=== PATIENT | female | born 1980 | race Caucasian/White ===

== ENCOUNTER 2016-11-04 16:20 | Emergency (ER) | payer SELFPAY ==
--- NOTE | 2016-11-04 17:55 | ED CLINICAL REPORT ---
Clinical Report - Physicians/Mid Levels [facility] [address] [place] [address] 11/04/2016 16:22 Patient: MICHELLE MEDINA Time Seen: 16:21; initial patient contact. Arrived- By ambulance. Historian- patient. HISTORY OF PRESENT ILLNESS Chief Complaint: COUGH and SINUS PAIN. This started about days ago and is still present. It was gradual in onset. The illness is described as mild. The patient has had a cough, a sore throat, nasal congestion, sinus pressure and sinus drainage. She has had chills and a nasal discharge. No sputum production, difficulty breathing, chest discomfort or pain or fever. No muscle aches or ear pain. Additional history - No known contact with a sick individual. Similar symptoms previously: None. Recent medical care: The patient was seen recently in a clinic. ( sent here for "concerns for a PE".). REVIEW OF SYSTEMS The patient has had a headache. No nausea, vomiting, diarrhea, pedal edema or calf pain. All systems otherwise negative, except as recorded above. PAST HISTORY Negative. Problems: no known problems. Surgeries: Tubal ligation. Medications: None. Allergies: No Known Drug Allergy. SOCIAL HISTORY Never smoker. Occasional alcohol use. History of drug use: marijuana. Second-hand smoke exposure. ADDITIONAL NOTES The nursing notes have been reviewed with agreement regarding the chief complaint, PMH and patient medications and allergies. PHYSICAL EXAM Appearance: Alert. No acute distress. Eyes: Eyes normal inspection. ENT: Tenderness present to percussion/palpation of the sinuses. Ears normal. Mild generalized pharyngeal erythema. The mucous membranes are not dry. Neck: No lymphadenopathy. CVS: Normal heart rate and rhythm. Heart sounds normal. Respiratory: No respiratory distress. Breath sounds normal. Skin: No rash. Neuro: Oriented X 3. PROGRESS AND PROCEDURES Disposition: Discharged home in good and improved condition. Condition: good. CLINICAL IMPRESSION Acute maxillary sinusitis Costochondritis. An EKG was not performed because a benign, noncardiac etiology was evident without doing an EKG. INSTRUCTIONS Prescription Medications: Azithromycin 500 mg tablets: take 1 orally every day for 3 days. Total course 3 days. No refills. Diclofenac 50 mg tablets: take 1 tablet orally every 8 hours as needed for pain or stiffness. Dispense twenty (20). No refill. Follow-up: Follow up with your doctor in about two days. Call for an appointment. Screening today revealed the patient's blood pressure to be in the normal range. (Electronically signed by Juan Cooper Dr. 11/04/2016 22:52)
--- NOTE | 2016-11-04 17:55 | ED ORDER SUMMARY ---
..... Patient: MICHELLE MEDINA OrderSheet [facility] VisitID: [id number] [address] [place] [address] 35y, F Registration Date/Time: 11/04/2016 ORDER SHEET Weight: 124.7 kg (stated) Allergies: No Known Drug Allergy GENERAL ORDERS: MEDICATION ORDERS: Toradol IM 60 mg (NOW) (16:43 11/04/2016 Mahendra Marlow) (Ack 16:53 MWinterer R.N.) (17:03 MWinterer R.N.) IV FLUIDS: ORDER SHEET NOTES: [Electronically signed by Kerri Carcamo R.N. (19:08 11/04/2016)] [Electronically signed by Juan Cooper Dr. (22:52 11/04/2016)] [Electronically locked/signed by Kerri Carcamo R.N. (19:08 11/04/2016)]
--- NOTE | 2016-11-04 17:55 | ED NURSING NOTES ---
Clinical Report - Nurses [facility] [address] [place] [address] 11/04/2016 16:22 Patient: MICHELLE MEDINA TRIAGE Acuity: LEVEL 3. Chief Complaint: COUGH and SORE THROAT. Alert. No acute distress. SEPSIS SCREEN: Sepsis Screen. Negative (no infection suspected/documented). --16:24 Kerri Carcamo R.N. 16:20 11/04/16. BP: 118/70. HR: 106. RR: 20. O2 saturation: 96%. Temp: 98.9 F (oral). --16:24 Kerri Carcamo R.N. Weight: 124.7 kg stated. Height/Length: 65 inches Per Patient. BMI: 45.8. --16:23 Kerri Carcamo R.N. Medications None. --16:22 Kerri Carcamo R.N. Medication/allergy information source: the patient. --16:24 Kerri Carcamo R.N. Allergies No Known Drug Allergy. --16:22 Kerri Carcamo R.N. History Arrived by EMS. Historian: patient. Accompanied by spouse. Primary physician (NONE). Onset. (4 days ago). 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 Recently seen at another facility in a clinic. PAST MEDICAL HX: Last normal menstrual period was 4 weeks ago. Has had a tubal ligation. SOCIAL HX: Never smoker. Occasional alcohol use. History of occasional drug use: marijuana. FALL RISK ASSESSMENT: Fall risk assessment completed. No fall risk identified. NUTRITIONAL RISK ASSESSMENT: The nutritional risk assessment revealed no deficiencies. FUNCTIONAL ASSESSMENT: Functional assessment: no impairments noted. LEARNING NEEDS ASSESSMENT: The learning needs assessment revealed no barriers. SKIN INTEGRITY ASSESSMENT: Skin integrity risk assessment completed. No skin integrity risk identified. --16:24 Kerri Carcamo R.N. Assessment GENERAL / NEURO / PSYCH: Alert. Oriented X 4. Appears in no acute distress. Patient appears calm and cooperative. RESPIRATORY: Respirations not labored. CVS: Capillary refill less than 2 seconds. GI / : Abdomen soft and nontender. SKIN: Mucous membranes are pink. Skin is warm and dry. --16:24 Kerri Carcamo R.N. Interventions ID band on patient. To treatment room. --16:24 Kerri Carcamo R.N. PHYSICAL ASSESSMENT To room via stretcher. GENERAL / NEURO / PSYCH: Alert. Oriented X 4. Appears in no acute distress. HEENT: Pupils equal, round and reactive to light. Ears within normal limits. Voice within normal limits. Mucous membranes are pink. RESPIRATORY: Respirations not labored. CVS: Capillary refill less than 2 seconds. SKIN: Skin is warm and dry. Normal skin turgor. --16:24 Kerri Carcamo R.N. NURSING PROGRESS NOTES 16:25 11/04/16. Patient gowned. Two patient identifiers checked. Call light placed in reach. Side rails up x 1. Bed placed in lowest position. Brakes of bed on. Patient ready for evaluation- chart flagged. --16:25 Kerri Carcamo R.N. 17:03 11/04/2016 Toradol (Ketorolac Tromethamine) IM 60 mg given. Given in the left anterior lateral thigh. Allergies verified and confirmed 5 rights. --17:03 Kerri Carcamo R.N. DISPOSITION / DISCHARGE Departure time: 18:10 Nov 04 2016. Condition at departure: improved and stable. No learning barriers present. Discharge instructions provided and reviewed with the patient. Reviewed medication(s) side effects, precautions and dosing information. Prescription(s) given to the patient. Patient verbalized understanding. Written instructions provided in [place]i. The patient was discharged by the physician. She was discharged home and accompanied by spouse. She left the Emergency Department ambulatory and via bus and with fare provided. --19:08 Kerri Carcamo R.N. 19:06 11/04/16. BP: 112/69. HR: 98. RR: 18. O2 saturation: 98% on room air. Temp: 98.8 F (oral). Pain level now: 0/10. --19:08 Kerri Carcamo R.N. Locked/Released at 11/04/2016 19:08 by Kerri Carcamo R.N.
--- NOTE | 2016-11-04 17:55 | ED NURSING NOTES ---
Clinical Report - Nurses [facility] [address] [place] [address] 11/04/2016 16:22 Patient: MICHELLE MEDINA TRIAGE Acuity: LEVEL 3. Chief Complaint: COUGH and SORE THROAT. Alert. No acute distress. SEPSIS SCREEN: Sepsis Screen. Negative (no infection suspected/documented). --16:24 Kerri Carcamo R.N. 16:20 11/04/16. BP: 118/70. HR: 106. RR: 20. O2 saturation: 96%. Temp: 98.9 F (oral). --16:24 Kerri Carcamo R.N. Weight: 124.7 kg stated. Height/Length: 65 inches Per Patient. BMI: 45.8. --16:23 Kerri Carcamo R.N. Medications None. --16:22 Kerri Carcamo R.N. Medication/allergy information source: the patient. --16:24 Kerri Carcamo R.N. Allergies No Known Drug Allergy. --16:22 Kerri Carcamo R.N. History Arrived by EMS. Historian: patient. Accompanied by spouse. Primary physician (NONE). Onset. (4 days ago). 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 Recently seen at another facility in a clinic. PAST MEDICAL HX: Last normal menstrual period was 4 weeks ago. Has had a tubal ligation. SOCIAL HX: Never smoker. Occasional alcohol use. History of occasional drug use: marijuana. FALL RISK ASSESSMENT: Fall risk assessment completed. No fall risk identified. NUTRITIONAL RISK ASSESSMENT: The nutritional risk assessment revealed no deficiencies. FUNCTIONAL ASSESSMENT: Functional assessment: no impairments noted. LEARNING NEEDS ASSESSMENT: The learning needs assessment revealed no barriers. SKIN INTEGRITY ASSESSMENT: Skin integrity risk assessment completed. No skin integrity risk identified. --16:24 Kerri Carcamo R.N. Assessment GENERAL / NEURO / PSYCH: Alert. Oriented X 4. Appears in no acute distress. Patient appears calm and cooperative. RESPIRATORY: Respirations not labored. CVS: Capillary refill less than 2 seconds. GI / : Abdomen soft and nontender. SKIN: Mucous membranes are pink. Skin is warm and dry. --16:24 Kerri Carcamo R.N. Interventions ID band on patient. To treatment room. --16:24 Kerri Carcamo R.N. PHYSICAL ASSESSMENT To room via stretcher. GENERAL / NEURO / PSYCH: Alert. Oriented X 4. Appears in no acute distress. HEENT: Pupils equal, round and reactive to light. Ears within normal limits. Voice within normal limits. Mucous membranes are pink. RESPIRATORY: Respirations not labored. CVS: Capillary refill less than 2 seconds. SKIN: Skin is warm and dry. Normal skin turgor. --16:24 Kerri Carcamo R.N. NURSING PROGRESS NOTES 16:25 11/04/16. Patient gowned. Two patient identifiers checked. Call light placed in reach. Side rails up x 1. Bed placed in lowest position. Brakes of bed on. Patient ready for evaluation- chart flagged. --16:25 Kerri Carcamo R.N. 17:03 11/04/2016 Toradol (Ketorolac Tromethamine) IM 60 mg given. Given in the left anterior lateral thigh. Allergies verified and confirmed 5 rights. --17:03 Kerri Carcamo R.N. DISPOSITION / DISCHARGE Departure time: 18:10 Nov 04 2016. Condition at departure: improved and stable. No learning barriers present. Discharge instructions provided and reviewed with the patient. Reviewed medication(s) side effects, precautions and dosing information. Prescription(s) given to the patient. Patient verbalized understanding. Written instructions provided in Kyrgyz. The patient was discharged by the physician. She was discharged home and accompanied by spouse. She left the Emergency Department ambulatory and via bus and with fare provided. --19:08 Kerri Carcamo R.N. 19:06 11/04/16. BP: 112/69. HR: 98. RR: 18. O2 saturation: 98% on room air. Temp: 98.8 F (oral). Pain level now: 0/10. --19:08 Kerri Carcamo R.N. Locked/Released at 11/04/2016 19:08 by Kerri Carcamo R.N.
--- NOTE | 2016-11-04 17:55 | ED ORDER SUMMARY ---
..... Patient: MICHELLE MEDINA OrderSheet [facility] VisitID: [id number] [address] [place] [address] 35y, F Registration Date/Time: 11/04/2016 ORDER SHEET Weight: 124.7 kg (stated) Allergies: No Known Drug Allergy GENERAL ORDERS: MEDICATION ORDERS: Toradol IM 60 mg (NOW) (16:43 11/04/2016 Mahendra Marlow) (Ack 16:53 MWinterer R.N.) (17:03 MWinterer R.N.) IV FLUIDS: ORDER SHEET NOTES: [Electronically signed by Kerri Carcamo R.N. (19:08 11/04/2016)] [Electronically signed by Juan Cooper Dr. (22:52 11/04/2016)] [Electronically locked/signed by Kerri Carcamo R.N. (19:08 11/04/2016)]
--- NOTE | 2016-11-04 17:55 | ED CLINICAL REPORT ---
Clinical Report - Physicians/Mid Levels [facility] [address] [place] [address] 11/04/2016 16:22 Patient: MICHELLE MEDINA Time Seen: 16:21; initial patient contact. Arrived- By ambulance. Historian- patient. HISTORY OF PRESENT ILLNESS Chief Complaint: COUGH and SINUS PAIN. This started about days ago and is still present. It was gradual in onset. The illness is described as mild. The patient has had a cough, a sore throat, nasal congestion, sinus pressure and sinus drainage. She has had chills and a nasal discharge. No sputum production, difficulty breathing, chest discomfort or pain or fever. No muscle aches or ear pain. Additional history - No known contact with a sick individual. Similar symptoms previously: None. Recent medical care: The patient was seen recently in a clinic. ( sent here for "concerns for a PE".). REVIEW OF SYSTEMS The patient has had a headache. No nausea, vomiting, diarrhea, pedal edema or calf pain. All systems otherwise negative, except as recorded above. PAST HISTORY Negative. Problems: no known problems. Surgeries: Tubal ligation. Medications: None. Allergies: No Known Drug Allergy. SOCIAL HISTORY Never smoker. Occasional alcohol use. History of drug use: marijuana. Second-hand smoke exposure. ADDITIONAL NOTES The nursing notes have been reviewed with agreement regarding the chief complaint, PMH and patient medications and allergies. PHYSICAL EXAM Appearance: Alert. No acute distress. Eyes: Eyes normal inspection. ENT: Tenderness present to percussion/palpation of the sinuses. Ears normal. Mild generalized pharyngeal erythema. The mucous membranes are not dry. Neck: No lymphadenopathy. CVS: Normal heart rate and rhythm. Heart sounds normal. Respiratory: No respiratory distress. Breath sounds normal. Skin: No rash. Neuro: Oriented X 3. PROGRESS AND PROCEDURES Disposition: Discharged home in good and improved condition. Condition: good. CLINICAL IMPRESSION Acute maxillary sinusitis Costochondritis. An EKG was not performed because a benign, noncardiac etiology was evident without doing an EKG. INSTRUCTIONS Prescription Medications: Azithromycin 500 mg tablets: take 1 orally every day for 3 days. Total course 3 days. No refills. Diclofenac 50 mg tablets: take 1 tablet orally every 8 hours as needed for pain or stiffness. Dispense twenty (20). No refill. Follow-up: Follow up with your doctor in about two days. Call for an appointment. Screening today revealed the patient's blood pressure to be in the normal range. (Electronically signed by Juan Cooper Dr. 11/04/2016 22:52)
--- NOTE | 2016-11-04 22:52 | ED MED RECONCILIATION SUMMARY ---
Patient: MICHELLE MEDINA Medication Reconciliation Report [facility] VisitID: [id number] [address] [place] [address] 35y, F Registration Date/Time: 11/04/2016 Weight: 124.7 kg Height/Length: 65 in. BMI: 45.8 ALLERGIES: No Known Drug Allergy The patient's Home Medications are listed below: NONE. The source(s) of the original Home Medication information: patient The following Medications were given to the patient in the Emergency Department: Toradol [IM] IM 60 mg, administered: 11/04/2016 5:03:00 PM The following Medications were prescribed to the patient: Azithromycin 500 mg tablets: take 1 orally every day for 3 days. Total course 3 days. No refills. -- Juan Cooper Dr. Diclofenac 50 mg tablets: take 1 tablet orally every 8 hours as needed for pain or stiffness. Dispense twenty (20). No refill. -- Juan Cooper Dr.
--- NOTE | 2016-11-04 22:52 | ED MED RECONCILIATION SUMMARY ---
Patient: MICHELLE MEDINA Medication Reconciliation Report [facility] VisitID: [id number] [address] [place] [address] 35y, F Registration Date/Time: 11/04/2016 Weight: 124.7 kg Height/Length: 65 in. BMI: 45.8 ALLERGIES: No Known Drug Allergy The patient's Home Medications are listed below: NONE. The source(s) of the original Home Medication information: patient The following Medications were given to the patient in the Emergency Department: Toradol [IM] IM 60 mg, administered: 11/04/2016 5:03:00 PM The following Medications were prescribed to the patient: Azithromycin 500 mg tablets: take 1 orally every day for 3 days. Total course 3 days. No refills. -- Juan Cooper Dr. Diclofenac 50 mg tablets: take 1 tablet orally every 8 hours as needed for pain or stiffness. Dispense twenty (20). No refill. -- Juan Cooper Dr.
--- NOTE | 2016-11-04 22:52 | ED MAR SUMMARY ---
..... Medication Administration Record [facility] [address] [place] [address] Patient: MICHELLE MEDINA Visit ID: [id number] 35y, F Weight: 124.7 kg Height/Length: 65 in BMI: 45.8 ALLERGIES: No Known Drug Allergy Given 17:03 11/04/2016 Kerri Carcamo R.N. Medication Administered: TORADOL [IM] (KETOROLAC TROMETHAMINE), Dose: 60 mg IM. Medication Ordered: Toradol IM 60 mg (NOW).
--- NOTE | 2016-11-04 22:52 | ED MAR SUMMARY ---
..... Medication Administration Record Located Within [facility] [address] [place] [address] Patient: MICHELLE MEDINA Visit ID: [id number] 35y, F Weight: 124.7 kg Height/Length: 65 in BMI: 45.8 ALLERGIES: No Known Drug Allergy Given 17:03 11/04/2016 Kerri Carcamo R.N. Medication Administered: TORADOL [IM] (KETOROLAC TROMETHAMINE), Dose: 60 mg IM. Medication Ordered: Toradol IM 60 mg (NOW).
--- NOTE | 2016-11-04 22:52 | ED DISCHARGE INSTRUCTIONS ---
Patient: MICHELLE MEDINA General Instructions [facility] VisitID: [id number] [place] [address] 35y, F Registration Date/Time: 11/04/2016 Acute maxillary sinusitis Costochondritis. An EKG was not performed because a benign, noncardiac etiology was evident without doing an EKG. INSTRUCTIONS Prescription Medications: Azithromycin 500 mg tablets: take 1 orally every day for 3 days. Total course 3 days. No refills. Diclofenac 50 mg tablets: take 1 tablet orally every 8 hours as needed for pain or stiffness. Dispense twenty (20). No refill. Follow-up: Follow up with your doctor in about two days. Call for an appointment. Screening today revealed the patient's blood pressure to be in the normal range. ADDITIONAL INFORMATION Sinusitis [Abx Tx] The sinuses are air-filled spaces within the bones of the face. They connect to the inside of the nose. Sinusitis is an inflammation of the tissue lining the sinus cavity. Sinus inflammation can occur during a cold or hay-fever (allergies to pollens and other particles in the air) and cause symptoms of sinus congestion and fullness. A sinus infection causes fever, headache and facial pain. There is usually green or yellow drainage from the nose or into the back of the throat (post-nasal drip). Antibiotics are prescribed to treat this condition. Home Care: Drink plenty of water, hot tea, and other liquids to stay well hydrated. This thins the mucus and promotes sinus drainage. Apply heat to the painful areas of the face. Use a towel soaked in hot water. Or, instrument repairer steam plant the shower and direct the hot spray onto your face. This is a good way to inhale warm water vapor and get heat on your face at the same time. (Cover your mouth and nose with your hands so you can still breathe as you do this.) Use a vaporizer with products such as Vicks VapoRub (contains menthol) at night. Suck on peppermint, menthol or eucalyptus hard candies during the day. An expectorant containing guaifenesin (such as Robitussin), helps to thin the mucus and promote drainage from the sinuses. [id number] decongestants may be used unless a similar medicine was prescribed. Nasal sprays work the fastest. Use one that contains phenylephrine (Jose G-synephrine, Sinex and others) or oxymetazoline (Afrin). First blow the nose gently to remove mucus, then apply the drops. Do not use these medicines more often than directed on the label or for more than three days or symptoms may worsen. You may also use tablets containing pseudoephedrine (Sudafed). Many sinus remedies combine ingredients, which may increase side effects. Read the labels or ask the pharmacist for help. NOTE: Persons with high blood pressure should not use decongestants. They can raise blood pressure. Antihistamines are useful if allergies are a cause of your sinusitis. The mildest one is chlorpheniramine (available without a prescription). The dose for adults is 8-12mg three times a day. [NOTE: Do not use chlorpheniramine if you have glaucoma or if you are a man with trouble urinating due to an enlarged prostate.] Claritin (loratidine) is an antihistamine that causes less drowsiness and is a good alternative for daytime use. Do not use nasal rinses or irrigation during an acute sinus infection, unless advised by your doctor. Rinsing may spread the infection to other sinuses. You may use acetaminophen (Tylenol) or ibuprofen (Motrin, Advil) to control pain, unless another pain medicine was prescribed. [ NOTE: If you have chronic liver or kidney disease or ever had a stomach ulcer, talk with your doctor before using these medicines.] (Aspirin should never be used in anyone under 18 years of age who is ill with a fever. It may cause severe liver damage.) Finish the full course, even if you are feeling better after a few days. Follow Up with your doctor or this facility in one week or as instructed by our staff if not improving. Get Prompt Medical Attention if any of the following occur: Facial pain or headache becomes more severe Stiff neck Unusual drowsiness or confusion, or not acting like your normal self Swelling of the forehead or eyelids Vision problems including blurred or double vision Fever of 100.4F (38C) or higher, or as directed by your healthcare provider Seizure Chest Wall Pain: Costochondritis The chest pain that you have had today is caused by Costochondritis. This condition is due to an inflammation of the cartilage joining the ribs to the breastbone. It is not caused by heart or lung problems. Although the exact cause for costochondritis is not known, it often occurs during times of emotional stress. It can be painful, but it is not dangerous. It usually disappears within one to two weeks, but may recur. Rarely, a more serious condition may cause symptoms similar to costochondritis; therefore, watch for the warning signs listed below. Home Care: If you feel that emotional stress is a cause of your condition, try to identify sources of that stress. It may not be obvious! Learn ways to deal with the stress in your life such as regular exercise, muscle relaxation, meditation, or simply taking time out for yourself. For more information about this, consult your doctor or go to a local bookstore and review books and tapes available on the subject of stress reduction. You may use acetaminophen (Tylenol) or ibuprofen (Motrin, Advil) to control pain, unless another pain medicine was prescribed. [ NOTE: If you have liver disease or ever had a stomach ulcer, talk with your doctor before using these medicines.] The use of heat (hot wet compress or heating pad) with or without local analgesic creams (Deep Heat Rub, Jordon Westfall) will be helpful to reduce pain. Follow Up with your doctor as directed or sooner if you do not start to improve within the next two days. Get Prompt Medical Attention if any of the following occur: A change in the type of pain: if it feels different, becomes more severe, lasts longer, or spreads into your shoulder, arm, neck, jaw or back Shortness of breath or increased pain with breathing Weakness, dizziness, or fainting Cough with dark colored sputum (phlegm) or blood Abdominal pain Dark red or black stools Fever of 100.4F (38C) or higher, or as directed by your healthcare provider Azithromycin Oral tablet What is this medicine? AZITHROMYCIN (az ith jose MYE sin) is a macrolide antibiotic. It is used to treat or prevent certain kinds of bacterial infections. It will not work for colds, flu, or other viral infections. How should I use this medicine? Take this medicine by mouth with a full glass of water. Follow the directions on the prescription label. The tablets can be taken with food or on an empty stomach. If the medicine upsets your stomach, take it with food. Take your medicine at regular intervals. Do not take your medicine more often than directed. Take all of your medicine as directed even if you think your are better. Do not skip doses or stop your medicine early. Talk to your parking lot laborer regarding the use of this medicine in children. Special care may be needed. What side effects may I notice from receiving this medicine? Side effects that you should report to your doctor or health social worker palliative care as soon as possible: allergic reactions like skin rash, itching or hives, swelling of the face, lips, or tongue confusion, nightmares or hallucinations dark urine difficulty breathing hearing loss irregular heartbeat or chest pain pain or difficulty passing urine redness, blistering, peeling or loosening of the skin, including inside the mouth white patches or sores in the mouth yellowing of the eyes or skin Side effects that usually do not require medical attention (report to your doctor or health social worker palliative care if they continue or are bothersome): diarrhea dizziness, drowsiness headache stomach upset or vomiting tooth discoloration vaginal irritation What may interact with this medicine? Do not take this medicine with any of the following medications: lincomycin This medicine may also interact with the following medications: amiodarone antacids cyclosporine digoxin magnesium nelfinavir phenytoin warfarin What if I miss a dose? If you miss a dose, take it as soon as you can. If it is almost time for your next dose, take only that dose. Do not take double or extra doses. Where should I keep my medicine? Keep out of the reach of children. Store at room temperature between 15 and 30 degrees C (59 and 86 degrees F). Throw away any unused medicine after the expiration date. What should I tell my health care provider before I take this medicine? They need to know if you have any of these conditions: kidney disease liver disease irregular heartbeat or heart disease an unusual or allergic reaction to azithromycin, erythromycin, other macrolide antibiotics, foods, dyes, or preservatives or trying to get breast-feeding What should I watch for while using this medicine? Tell your doctor or health social worker palliative care if your symptoms do not improve. Do not treat diarrhea with over the counter products. Contact your doctor if you have diarrhea that lasts more than 2 days or if it is severe and watery. This medicine can make you more sensitive to the sun. Keep out of the sun. If you cannot avoid being in the sun, wear protective clothing and use sunscreen. Do not use sun lamps or tanning beds/booths. You have been given the following additional information: Sinusitis, Abx Tx Chest Wall Pain, Costochondritis Azithromycin Oral tablet (Electronically signed by Juan Cooper Dr. 11/04/2016 22:52)
== END 2016-11-04 18:10 | disposition home or self-care (01) ==
LOC: ED SRH 16:20
DX: J01.00 Acute maxillary sinusitis, unspecified (principal); M94.0 Chondrocostal junction syndrome [Tietze]